=== PATIENT | female | born 1995 | race Hispanic/Latino ===

== ENCOUNTER 2024-12-01 20:28 | Emergency (ER) | payer MEDICAID, OTHER ==
[~2024-12-01] VITALS: Ht 154.9 cm; Wt 101.6 kg
--- NOTE | 2024-12-01 20:47 | ERN ---
ED Note History of Present Illness Stated Complaint: C/O RUQ PAIN W/NAUSEA, DIARRHEA ONSET SAT Chief Complaint: Abdominal Pain Time Seen by MD: 20:33 Time Seen by Midlevel: 20:36 Dictation: 29-year-old female with no past medical or surgical history coming in with complaints of right upper quadrant pain radiating to the epigastric region since Friday. Patient states she is also nauseated in his head diarrhea for the past three days. Patient states states she had five episodes of loose stools, nonbloody. Denies any fevers, vomiting, chest pain or discomfort, or shortness of breath. Denies any urinary symptoms. Allergies: Coded Allergies: No Known Allergies (Verified Allergy, Unknown, 11/27/16) Home Meds No Active Prescriptions or Reported Meds Past Medical History Past Medical History: No Pertinent History Surgical History: None Family History: Negative Social History: Negative LMP: October 28, 2024 RN Note Reviewed/Agreed w/PFSH: Yes Review of System Dictation Constitutional: Negative for fever,chills, and weight loss Eyes: Negative for injury, pain,redness, and discharge ENT: Negative for injury,pain or swelling Cardiovascular: Negative for chest pain, palpitations, and edema Respiratory: Negative for shortness of breath, cough, and wheezing, Abdomen/GI: Complaining of right upper quadrant pain with nausea and diarrhea, no vomiting Back: Negative for injury and pain : Negative for injury, bleeding and discharge MS/Extremity: Negative for injury and deformity Skin: Negative for rash, and discoloration Neuro: Negative for headache, weakness, numbness, tingling, and seizure Psych: Negative for suicide ideation, homicidal ideation, and hallucinations Review of Systems: was completed Initial Vital Sign VS Vital Signs Date Time Temp Pulse Resp B/P (MAP) Pulse Ox O2 Delivery O2 Flow Rate FiO2 12/01/24 20:30 99.0 105 20 119/79 98 Room Air Physical Exam Dictation General: awake, alert, NAD Head/Face: Normocephalic, atraumatic Eyes: PERRL, EOMI, vision at baseline ENT: oral cavity clear, TMs clear, no signs of infection Neck: Trachea midline, supple, no nuchal rigidity Cardiovascular: RRR, normal S1/S2, No MRGs, no JVD Respiratory: CTAB, no respiratory distress, No rales or wheezes Abdomen: Soft, mild tenderness on palpation to the right upper quadrant, non- distended, normal bowel sounds, no guarding or rebound. Skin: Warm, dry, normal turgor, no rash MS/Extremity: Pulses equal, no cyanosis, neurovascular intact, FROM Neuro: COAx4, GCS 15, strength 5/5, CN 2-12 intact, normal cerebellar exam, normal gait, Psych: Normal behavior, mood, and affect normal Results (Laboratory/Radiology) Laboratory/Radiology Laboratory Tests Test 12/01/24 20:33 12/01/24 21:20 Urine Color YELLOW (YELLOW) Urine Appearance CLEAR (CLEAR) Urine pH 6.0 (5.0-8.0) Urine Specific [place] 1.020 (1.001-1.031) Urine Protein NEGATIVE mg/dL (NEGATIVE) Urine Glucose (UA) NEGATIVE mg/dL (NEGATIVE) Urine Ketones NEGATIVE mg/dL (NEGATIVE) Urine Occult Blood NEGATIVE (NEGATIVE) Urine Nitrate NEGATIVE (NEGATIVE) Urine Bilirubin NEGATIVE mg/dL (NEGATIVE) Urine Urobilinogen 0.2 mg/dL (0.2-1.0) Urine Leukocyte Esterase NEGATIVE Cookie/uL White Blood Count 12.4 K/uL (4.8-10.8) H Red Blood Count 4.39 MIL/uL (4.00-5.50) Hemoglobin 13.1 g/dL (12.0-16.0) Hematocrit 40.0 % (36-48) Mean Corpuscular Volume 91.1 fL (79-99) Mean Corpuscular Hemoglobin 29.8 pg (27.0-33.0) Mean Corpuscular Hemoglobin Concent 32.8 g/dL (32.0-36.0) Red Cell Distribution Width 13.8 % (11.0-15.5) Platelet Count 335 K/uL (130-400) Mean Platelet Volume 10.0 fL (7.5-10.5) Immature Granulocyte % (Auto) 0.5 % (0-1) Neutrophils (%) (Auto) 68.2 % (40.0-77.0) Lymphocytes (%) (Auto) 25.1 % (21.0-51.0) Monocytes (%) (Auto) 4.8 % (3.0-13.0) Eosinophils (%) (Auto) 1.1 % (0.0-8.0) Basophils (%) (Auto) 0.3 % (0.0-5.0) Neutrophils # (Auto) 8.5 K/uL (1.8-7.7) H Lymphocytes # (Auto) 3.1 K/uL (1.0-4.8) Monocytes # (Auto) 0.6 K/uL (0.1-1.0) Eosinophils # (Auto) 0.14 K/uL (0.00-0.70) Basophils # (Auto) 0.04 K/uL (0.00-0.20) Absolute Immature Granulocyte (auto 0.06 K/uL (0-1) Nucleated Red Blood Cells 0.0 % (0.0-0.19) Sodium Level 139 mmol/L (136-145) Potassium Level 3.7 mmol/L (3.5-5.1) Chloride Level 103 mmol/L (101-111) Carbon Dioxide Level 30 mmol/L (21-32) Blood Urea Nitrogen 9 mg/dL (7-18) Creatinine 0.8 mg/dL (0.5-1.0) Glomerular Filtration Rate Calc 102 mL/min (>90) Random Glucose 137 mg/dL (70-105) H Total Calcium 9.0 mg/dL (8.5-10.1) Total Bilirubin 0.2 mg/dL (0.2-1.0) Direct Bilirubin 0.1 mg/dL (0.0-0.3) Aspartate Amino Transf (AST/SGOT) 19 U/L (10-37) Alanine Aminotransferase (ALT/SGPT) 53 U/L (12-78) Alkaline Phosphatase 128 U/L (50-136) Total Protein 7.7 g/dL (6.0-8.3) Albumin 3.6 g/dL (3.5-5.0) Lipase 34 U/L (16-77) Human Chorionic Gonadotropin, Quant 0 mIU/mL (0-5) Labs Reviewed?: Yes ED Course ED Course Orders Procedure Category Date Status Time Cbc With Differential LAB 12/01/24 Complete 20:38 Basic Metabolic Panel LAB 12/01/24 Complete 20:38 Hepatic Function Panel LAB 12/01/24 Complete 20:38 Lipase LAB 12/01/24 Complete 20:38 Hcg,Quantitative LAB 12/01/24 Complete 20:38 Urinalysis Profile LAB 12/01/24 Complete 20:38 0.9%Nacl 1000ml (Ns PHA 12/01/24 Complete 1000ml) 20:38 Famotidine 20mg Vial PHA 12/01/24 Complete (Pepcid 20mg Vial) 20:38 Ondansetron 4mg Inj PHA 12/01/24 Complete (Zofran 4mg Inj) 20:38 Us Abdominal Ruq\Ltd US 12/01/24 Taken 20:47 Current Medications Medications (Trade) Dose Ordered Sig/Avelino Route PRN Reason Start Time Stop Time Status Last Admin Dose Admin Famotidine (Pepcid 20mg Vial) 20 mg ONCE STAT IV 12/01/24 20:38 12/01/24 20:41 DC 12/01/24 22:36 Ondansetron HCl (zoFRAN 4MG INJ) 4 mg ONCE STAT IVP 12/01/24 20:38 12/01/24 20:41 DC 12/01/24 22:36 Sodium Chloride 1,000 ml @ 1,000 mls/hr Q1H STAT IV 12/01/24 20:38 12/01/24 21:37 DC 12/01/24 22:36 Vital Signs Date Time Temp Pulse Resp B/P (MAP) Pulse Ox O2 Delivery O2 Flow Rate FiO2 12/01/24 20:30 99.0 105 20 119/79 98 Room Air 10:00 p.m. patient is signed out to me by CUSTOMER SERVICE ADMINISTRATOR This is a 29-year-old female morbidly obese with a BMI of 42 presented with epigastric and right upper quadrant pain. She also had nausea and diarrhea. Last menstrual period 10/28/2024. CBC showed a white count of 12.4 BNP 7 is completely normal LFTs are normal lipase is normal ultrasound abdomen shows a 2 mm gallbladder wall on the preliminary study no evidence of any gallbladder wall thickening or common bile duct dilatation. Final radiology report is pending at this time Urinalysis is unremarkable. Possibly a gastroenteritis or perhaps gastritis, esophagitis. Clinically responded to meds we will DC to follow up with her primary Medical Decision Making MDM 29-year-old female with no past medical or surgical history coming in with complaints of right upper quadrant pain radiating to the epigastric region since Friday. Patient states she is also nauseated diarrhea for the past three days. Patient states states she had five episodes of loose stools, nonbloody. Denies any fevers, vomiting, chest pain or discomfort, or shortness of breath. Denies any urinary symptoms. Differential diagnosis: Gastritis, hiatal hernia, esophagitis, biliary colic, gastroenteritis Rationale: Tests considered and ordered secondary to shared decision making include: Previous outside records reviewed: Old ER visits. Risk of complication and/or morbidity or mortality of patient management: None Medications-Per medication reconciliation Need for hospitalization: Patient does not meet criteria for hospitalization. Need for emergency major/minor surgery: No There are no social concerns with this patient. Prescription drug management Prescriptions will include symptomatic care Patient's prior external medical records from other ER visits were reviewed by me as indicated. Prior testing and results from previous visits were reviewed. Prior tests were taken into account with medical decision making and resource utilization, independent historian/historians were used to obtain complete medical history. I independently interpreted the test that were performed, results were reviewed by me and considered findings on radiology if ordered. Medical management and examination interpretation discussions were had by me with other qualified healthcare professionals as indicated for the patient's care. Problem List Problem List: (1) Gastroenteritis (2) Gastritis DX & DISP Disposition: Discharge Departure Impression: Primary Impression: Gastritis Additional Impression: Gastroenteritis Condition: Stable Scripts No Active Prescriptions or Reported Meds Additional Instructions: Patient and the caregiver have been informed of all the diagnostic tests and the imaging conducted during the today's visit to the emergency room and has verbalized understanding of the results I have personally reviewed and interpreted all diagnostic exams performed here in the ER today as well as the vital signs documented by the nursing staff. The patient is now being discharged to home and should follow up with the primary care physician or the specialist as directed by the ER staff. Follow-up with primary care provider in 1 to 2 days. Take medications as directed here in the emergency room. Okay to continue home medications unless otherwise discussed during your visit in the emergency room today. Return to your nearest emergency room if symptoms worsen or if there is no improvement. Call 911 if you need immediate assistance. Take Tylenol or Motrin [id number] as needed and if no contraindications are present. Increase oral hydration. A wound culture or urine culture was ordered here in the emergency room department please follow-up with primary care provider and advise them to get repeat ports from our facility. If you had any Sabino wrap/splints that were applied here, please do not remove them until you see your primary care or specialty. I have examined patient, & reviewed all documents, & agreed W/ the Diagnosis, and Plan I have updated the patient on all the labs and altered preliminary ultrasound results. And I explained to her that this may likely be a mild gastroenteritis. This should be self-limited. She got fluids and once the fluids are complete I will discharge her to follow up with her primary care physician. I counseled her extensively on GERD precautions avoidance of caffeinated beverages as well as citrus spicy acidic juices. And all GERD precautions including not sleeping immediately after eating, avoiding deep fried and greasy foods. Extensive counseling on weight loss diet exercise and lifestyle modifications was done and she verbalized full understanding EVELYNE MAURO NP Dec 01, 2024 20:47 LEW MCKEON MD Dec 01, 2024 22:38
[2024-12-01 20:50] LABS: APPEARANCE,URINE CLEAR (CLEAR); BILIRUBIN,URINE NEGATIVE (NEGATIVE); COLOR,URINE YELLOW (YELLOW); GLUCOSE, URINE (UA) NEGATIVE (NEGATIVE); KETONES,URINE NEGATIVE (NEGATIVE); LEUKOCYTE ESTERASE ,URINE NEGATIVE Leu/uL (NEGATIVE); NITRATE,URINE NEGATIVE (NEGATIVE); PROTEIN,URINE NEGATIVE (NEGATIVE); UROBILINOGEN,URINE 0.2 mg/dL (0.2-1.0)
[2024-12-01 20:56] LABS: OCCULT BLOOD,URINE NEGATIVE (NEGATIVE)
[2024-12-01 20:57] LABS: ADD UA MICROSCOPIC NO
[2024-12-01 21:32] LABS: BASOPHILS # (AUTO) 0.04 K/uL (0.00-0.20); BASOPHILS % (AUTO) 0.3 % (0.0-5.0); EOSINOPHILS # (AUTO) 0.14 K/uL (0.00-0.70); EOSINOPHILS % (AUTO) 1.1 % (0.0-8.0); IMMATURE GRANULOCYTE ABSOLUTE 0.06 K/uL (0-1); LYMPHOCYTES # (AUTO) 3.1 K/uL (1.0-4.8); LYMPHOCYTES % (AUTO) 25.1 % (21.0-51.0); MEAN CORPUSCULAR HEMOGLOBIN 29.8 pg (27.0-33.0); MEAN CORPUSCULAR HGB CONC 32.8 g/dL (32.0-36.0); MEAN CORPUSCULAR VOLUME 91.1 fL (79-99); MONOCYTES # (AUTO) 0.6 K/uL (0.1-1.0); MONOCYTES % (AUTO) 4.8 % (3.0-13.0); NEUTROPHILS # (AUTO) 8.5 K/uL (1.8-7.7); NEUTROPHILS % (AUTO) 68.2 % (40.0-77.0); PLATELET COUNT (AUTO) 335 K/uL (130-400); RED BLOOD CELL COUNT(AUTO) 4.39 MIL/uL (4.00-5.50); RED CELL DISTRIBUTION WIDTH 13.8 % (11.0-15.5); WHITE BLOOD COUNT (AUTO) 12.4 K/uL (4.8-10.8)
[2024-12-01 21:40] LABS: CREATININE 0.8 mg/dL (0.5-1.0); POTASSIUM 3.7 mmol/L (3.5-5.1)
[2024-12-01 22:05] LABS: ALBUMIN 3.6 g/dL (3.5-5.0); BILIRUBIN,DIRECT 0.1 mg/dL (0.0-0.3); BILIRUBIN,TOTAL 0.2 mg/dL (0.2-1.0); TOTAL PROTEIN, SERUM 7.7 g/dL (6.0-8.3)
--- NOTE | 2024-12-01 22:08 | NUR ---
TO US AT THIS TIME
[2024-12-01] MEDS: 0.9%NACL 1000ML 1,000 ML IV STA (22:36)
[2024-12-01] MEDS: FAMOTIDINE 20MG VIAL IV STA (22:36)
[2024-12-01] MEDS: ondanSETRON 4MG INJ IVP STA (22:36)
[2024-12-01 23:05] VITALS: BP 133/75; PULSE 76; RESP 16; TEMP 98.1; O2SAT 98
--- NOTE | 2024-12-02 10:05 | HMCIMG ---
Exam Type: US ABDOMINAL RUQ\E\LTD Clinical Information: pain to ruq Comparison: None Findings: The liver shows fatty infiltration and is enlarged, measuring 16.4 cm and is otherwise unremarkable. Doppler evaluation shows patent portal and hepatic veins. The gallbladder shows no significant abnormalities. Specifically, no calculi are seen. No bile duct dilatation is noted. The gallbladder wall measures 2 mm. The common bile duct measures 5 mm. The right kidney measures 10.5 x 4.4 cm- it shows no hydronephrosis or calculi, masses or other abnormalities. The pancreas is unremarkable. The aorta and inferior vena cava show no significant abnormalities. IMPRESSION: FATTY LIVER INFILTRATION AND HEPATOMEGALY. OTHERWISE NORMAL RIGHT UPPER QUADRANT ABDOMINAL ULTRASOUND.
== END 2024-12-01 23:09 | disposition home or self-care (01) ==
LOC: EDH 20:28
DX: K29.70 Gastritis, unspecified, without bleeding (principal); K52.9 Noninfective gastroenteritis and colitis, unspecified; R10.2 Pelvic and perineal pain
CPT/HCPCS: 99285; 96374; 76705; 96361; 96375; 80076; 80048; 84702; 83690; 85025; 81003; 36415; J3490; J7030; J2405